=== PATIENT | female | born 1960 | race African-American/Black ===

== ENCOUNTER 2017-11-17 23:39 | Inpatient (IN) | payer OTHER, MEDICAID ==
[~2017-11-17] VITALS: Ht 165.1 cm; Wt 68.9 kg
[2017-11-17] MEDS ORDERED: ACETAMINOPHEN 325MG TABLET PO STA (23:47)
[2017-11-17] MEDS ORDERED: METHYLPREDNISOLONE SOD SUCC 125 MG/2 ML VIAL IV STA (23:47)
[2017-11-17] MEDS ORDERED: IPRATROPIUM BROMIDE (0.02%) 0.5MG/2.5ML NEB HHN STA (23:47)
[2017-11-18] MEDS ORDERED: MAGNESIUM 2 G PREMIX 50 ML IV ONE
[2017-11-18] MEDS ORDERED: ASPIRIN 81MG TABLET PO ONE
[2017-11-18] MEDS ORDERED: NITROGLYCERIN OINT 1GM/INCH UDPKT TD ONE
[2017-11-18] MEDS ORDERED: LEVOFLOXACIN 750MG PREMIX 150 ML IV ONE
[2017-11-18] MEDS: ALBUTEROL (0.083%) 2.5MG/3ML NEB HHN SCH ×2 (00:30→01:03)
[2017-11-18 00:38] LABS: BG BILEVEL POS AIRWAY PRESSURE 15/5; BG DEOXYHEMOGLOBIN 1.9 % (0.0-5.0); BG FRACTION INSPIRED OXYGEN 40; BG HCO3 ACT 29.9 mmol/L (22.0-26.0); BG METHEMOGLOBIN 0.1 % (0.0-1.5); BG OXYGEN SATURATION 98.1 % (92.0-98.5); BG PCO2 50.3 mmHg (35.0-45.0); BG PH 7.392 (7.350-7.450); BG PO2 120.7 mmHg (75.0-100.0); BG SAMPLE SITE RIGHT BRACHIAL; BG TOTAL HEMOGLOBIN 12.4 g/dL (12.0-18.0); BG VENT MODE MASK - BIPAP
[2017-11-18 00:48] LABS: BASOPHILS % 0.6 % (0.0-2.0); CHLORIDE 101 mEq/L (98-107); EOSINOPHILS % 1.1 % (0.0-5.0); HEMATOCRIT. 35.9 % (36.0-48.0); HEMOGLOBIN. 11.7 g/dL (12.0-16.0); LYMPHOCYTES % 23.9 % (20.0-50.0); MEAN CORPUSCULAR VOLUME 89.3 fL (81.0-99.0); MEAN PLATELET VOLUME 11.3 fl (7.4-10.4); MONOCYTES % 4.9 % (2.0-8.0); NEUTROPHILS % 69.5 % (40.0-76.0); PLATELET 231 x1000/uL (130-400); RED BLOOD CELL COUNT 4.02 mill/uL (4.2-5.4); RED CELL DISTRIBUTION WIDTH 14.7 % (11.6-14.6)
[2017-11-18 00:50] LABS: INR 1.7; PROTHROMBIN TIME 17.8 sec (9.4-11.6)
[2017-11-18 00:52] LABS: ETHANOL BLOOD < 10 mg/dL
[2017-11-18 01:42] LABS: CLARITY URINE CLEAR (CLEAR); COLOR URINE YELLOW (YELLOW); KETONES URINE NEGATIVE (NEGATIVE); LEUKOCYTE ESTERASE URINE 1+ (NEGATIVE); NITRITE URINE NEGATIVE (NEGATIVE); OCCULT BLOOD URINE NEGATIVE (NEGATIVE); PROTEIN URINE NEGATIVE (NEGATIVE); SPECIFIC GRAVITY URINE 1.009 (1.005-1.030); UROBILINOGEN URINE 0.2 E.U./dL (0.2-1.0)
[2017-11-18] MEDS ORDERED: MORPHINE SULFATE 2 MG/ML CPJ (NOT FOR IM USE) IV STA (01:46)
[2017-11-18 01:55] LABS: *AMPHETAMINES SCREEN URINE NEGATIVE (NEGATIVE); *BARBITURATES SCREEN URINE NEGATIVE (NEGATIVE); *BENZODIAZEPINES SCREEN URINE NEGATIVE (NEGATIVE); *COCAINE SCREEN URINE NEGATIVE (NEGATIVE); METHADONE URINE SCREEN NEGATIVE (NEGATIVE); OPIATES URINE SCREEN NEGATIVE (NEGATIVE)
[2017-11-18 01:56] LABS: CANNABINOID URINE SCREEN NEGATIVE (NEGATIVE); PHENCYCLIDINE URINE SCREEN NEGATIVE (NEGATIVE)
[2017-11-18] MEDS ORDERED: HYDRALAZINE 20MG/ML VIAL IV SCH (03:44)
[2017-11-18 04:00] VITALS: BP 147/104
[2017-11-18 04:10] VITALS: BP 147/104
[2017-11-18] MEDS ORDERED: GUAIFENESIN 200MG/10ML SUGAR FREE UDC PO PRN (05:15)
[2017-11-18] MEDS ORDERED: MAGNESIUM/ALUMINUM HYDROXIDE/SIMETHICONE 30ML UDC PO PRN (05:15)
[2017-11-18] MEDS ORDERED: ACETAMINOPHEN 325MG TABLET PO PRN (05:15)
[2017-11-18] MEDS ORDERED: HYDROCODONE/ACETAMINOPHEN 5/325MG TABLET PO PRN (05:15)
[2017-11-18] MEDS ORDERED: IPRATROPIUM/ALBUTEROL 0.5-3(2.5)MG/3ML NEB INH PRN (05:15)
[2017-11-18] MEDS ORDERED: DOCUSATE SODIUM 100MG CAPSULE PO PRN (05:15)
[2017-11-18] MEDS ORDERED: CLONIDINE 0.1MG TABLET PO PRN (05:15)
[2017-11-18] MEDS ORDERED: NA PHOS,M-B/NA PHOS,DI-BA ENEMA 118ML PR PRN (05:15)
[2017-11-18] MEDS ORDERED: ONDANSETRON HCL 4MG/2ML VIAL IV PRN (05:15)
[2017-11-18] MEDS ORDERED: DIPH25CA83 MT (05:21)
[2017-11-18] MEDS ORDERED: TIOT18CA3 INH (05:21)
[2017-11-18] MEDS ORDERED: FLUT1DIS6 INH (05:21)
[2017-11-18] MEDS ORDERED: ALPR2TAB2 PO (05:22)
[2017-11-18] MEDS ORDERED: CYTO5 PO (05:22)
[2017-11-18] MEDS ORDERED: LEVO125T PO (05:23)
[2017-11-18] MEDS ORDERED: ALBU05 IH (05:26)
[2017-11-18 06:00] VITALS: BP 157/101
[2017-11-18] MEDS ORDERED: METHYLPREDNISOLONE SOD SUCC 125 MG/2 ML VIAL IV SCH (06:00)
[2017-11-18] MEDS ORDERED: IPRATROPIUM/ALBUTEROL 0.5-3(2.5)MG/3ML NEB INH SCH (06:00)
[2017-11-18] MEDS ORDERED: AMLODIPINE 10MG TABLET PO SCH (09:00)
[2017-11-18] MEDS ORDERED: ENOXAPARIN 40MG/0.4ML SYR SUBCUT SCH (09:00)
[2017-11-18] MEDS ORDERED: ASPIRIN 81MG EC TABLET PO SCH (09:00)
[2017-11-19] MEDS ORDERED: LEVOFLOXACIN 500MG PREMIX 100 ML IV SCH (01:00)
== END 2017-11-18 07:25 | disposition left against medical advice (07) | DRG 144 ==
LOC: ER 23:39 → 5EST 11-18 01:45 → ENRESERV 11-18 02:20 → 5EST 11-18 07:01
PROVIDERS: ADMIT Hospitalist; ATTEND Hospitalist
PROC: 5A09357 Assistance with Respiratory Ventilation, Less than 24 Consecutive Hours, Continuous Positive Airway Pressure (ICD-10-PCS; principal; 2017-11-17)
DX: R06.00 Dyspnea, unspecified (principal); E44.1 Mild protein-calorie malnutrition; I10 Essential (primary) hypertension; J44.9 Chronic obstructive pulmonary disease, unspecified; Z98.85 Transplanted organ removal status; Z88.0 Allergy status to penicillin; Z79.899 Other long term (current) drug therapy; Z68.25 Body mass index [BMI] 25.0-25.9, adult
CPT/HCPCS: 36415; 36600; 71045; 80053; 80305; 81003; 82375; 82805; 83605; 83690; 83880; 84484; 85025; 85610; 87040; 87086; 93005; 94640; 94660; 96365; 96367; 96375; 99291; G0482; J1956; J2270; J2930; J3475; J7611; J7620